=== PATIENT | male | born 1980 | race Caucasian/White ===

== ENCOUNTER 2019-01-05 17:40 | Emergency (ER) | payer OTHER, SELFPAY ==
[2019-01-05 17:45] VITALS: BP 159/91; PULSE 86; RESP 16; TEMP 36.7; O2SAT 98
--- NOTE | 2019-01-05 18:00 | DI.CT_ITS ---
SYMPTOMS/DIAGNOSIS: GASTROINTESTINAL BLEEDING CT OF THE ABDOMEN AND PELVIS: There are no prior comparison exams. The heart size is normal. The lung bases are clear. The liver, gallbladder, pancreas, kidneys and adrenals appear normal. There is borderline splenomegaly at 13.2 cm. The spleen is otherwise normal in appearance. The appendix is normal. There is no bowel dilatation or inflammatory change. There is a normal quantity of stool. The prostate, seminal vesicles and bladder are unremarkable. There is a minimal amount of fat extending into the inguinal canals. IMPRESSION: Borderline splenomegaly.
--- NOTE | 2019-01-05 18:08 | ED.GENADUL_ITS ---
Discharge Plan Disposition Patient Disposition: HOME Condition: Good Discharge Details Chief Complaint: GI Bleed Clinical Impression: Rectal bleed Primary Care Provider: Sil,Local ED Provider: Virgilio Suarez Home Meds and New Rx's Prescriptions: No Action doxycycline hyclate 100 mg Capsule 100 mg PO BID RF: 0 Discharge Instructions Instructions: Rectal Bleeding (ED) Additional Instructions: Your CT scan is negative for any significant abnormality aside for a slightly enlarged spleen which I feel is most likely an incidental finding. There is no evidence of a drop in your blood levels, low platelets, or other significant abnormality. At this time I feel your symptoms may be caused from a small internal hemorrhoid or a small mild bleed from somewhere in your lower colon. It is very important that you follow-up closely a with your primary care provider immediately for reassessment at home. If you notice any worsening of your symptoms, or any new symptoms such as vomiting, diarrhea, fever, chills, shortness of breath, chest pain, numbness, weakness, or fainting , please return immediately to the emergency department for reevaluation. Please follow up with your primary care provider as soon as possible for reassessment and reevaluation. As always, it was a pleasure participating in your medical care today. Referrals: Libertad Castro [Emergency Nurse] - Discharge Data Discharge Date/Time-TO BE ENTERED AT DEPARTURE: 01/05/19 19:16 Medical Decision Making This is a pleasant 38-year-old male who presents for evaluation of GI bleeding over the last 2 days. He noticed bright red blood on his stool yesterday x2, and then a very small episode of just blood in the toilet bowl today. He denies any abdominal pain weight loss fever or chills. He denies a history of colon cancer. Physical exam demonstrates no abdominal tenderness, no tachycardia or vital sign abnormalities. No evidence of significant hemorrhoid. Differential includes internal hemorrhoid that cannot be palpated, diverticulosis, or malignancy. Bedside Hemoccult was positive. We will get a CT scan to rule out significant diverticulosis or colonic wall thickening, will evaluate for hemoglobinopathy or platelet abnormality. 6:57 PM Laboratory work-up has returned, hemoglobin normal, platelets normal, PT PTT and INR normal, electrolytes normal, BUN/creatinine ratio normal, no clinical evidence of an upper GI bleed. With a notably normal work-up, CT scan has returned and shows no significant abnormality aside for a borderline splenomegaly. No other significant abnormalities. No evidence of colonic wall thickening per virtual radiology. Vital signs continue to remain normal. I suspect that the patient's symptoms may be secondary to very mild diverticulosis with bleeding, versus an internal hemorrhoid. 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 The patient is from out of town, I did discuss red flags which to immediately return and the importance of close follow-up and he understands. I have extensively reviewed the treatment plan and discharge instructions with the patient and their family. I have addressed all patient concerns at this time. The patient and family was made aware of what symptoms to monitor for that would warrant a return to the emergency department. Discussed the plan with the patient and family, they demonstrate verbal understanding and agreement with our assessment and plan at this time. FINDINGS: Liver: Normal. No mass. Gallbladder and bile ducts: Normal. No calcified stones. No ductal dilation. Pancreas: Normal. No ductal dilation. Spleen: Borderline splenomegaly 13.2 cm Adrenals: Normal. No mass. Kidneys and ureters: Normal. No hydronephrosis. Stomach and bowel: Normal. No obstruction. No mucosal thickening. Appendix: Normal appendix Intraperitoneal space: Normal. No free air. No significant fluid collection. Vasculature: Normal. No abdominal aortic aneurysm. Lymph nodes: Normal. No enlarged lymph nodes. Bladder: Unremarkable as visualized. Reproductive: Unremarkable as visualized. Bones/joints: No acute fracture. No dislocation. Soft tissues: Unremarkable. IMPRESSION: Borderline splenomegaly. 13.2 cm Thank you for allowing us to participate in the care of your patient. Dictated and Authenticated by: Abril Strickland MD 01/05/2019 6:36 PM Eastern Time ([place] & [place]) HPI General Date/Time Provider Initiated Documentation: 01/05/19 17:41 . HPI Narrative: This is a 38-year-old male with no significant past medical history who presents today for evaluation of blood in his stool. The patient was recently bit by a tick and on his scrotum and has been taking doxycycline for the past 4 to 5 days. He states that yesterday he had a notably painless bowel movement with notable bright red blood streaking on his stool. As a precaution he did stop taking his doxycycline. Since then he has had 2 more bowel movements with bright red blood on them, then just a few hours ago he had a bowel movement of only blood in the toilet. He denies any pain at that time. He states that he was actually just a small amount of blood in the toilet bowl, but there was no associated stool. He denies any abdominal pain nausea, vomiting, diarrhea, fever, chills, weight loss. He denies any family history of colon cancer. He denies any significant exposure to diet or toxin. He denies any dysuria or hematuria. The scrotal tick bite has resolved completely. He has no other complaints or modifying factors. Related Data Home Medications Medication Instructions Recorded Confirmed doxycycline hyclate 100 mg PO BID 01/05/19 01/05/19 General Stated Complaint: GI Bleed COMPA: 3 Review of Systems Review of Systems All systems reviewed & are unremarkable except as noted in HPI and below PFSH Social History Smoking/Tobacco Use Status: Never Alcohol Intake: never Substance use type: does not use Do you feel safe at home: Yes Do you feel safe in your relationship?: Yes Exam Narrative Exam Narrative: 1.Const: Well-nourished, Well-developed, appearing stated age 2.Eyes: PERRL, no conjunctival injection, and symmetrical lids. 3.ENT: Atraumatic external nose and ears. Moist MM. Neck: Symmetric, trachea midline, No thyromegaly. 4.CVS: +S1/S2, No murmurs or gallops. Peripheral pulses 2+ and equal in all extremities. Brisk capillary refill in all extremities. 5.RESP: Unlabored respiratory effort. Clear to auscultation bilaterally. No wheezes rales or rhonchi 6.GI: Soft, Nontender/Nondistended, No hepatosplenomegaly. No guarding or edmond ound. Rectal exam was performed with nurse at bedside. Rectal exam demonstrates no significant hemorrhoid. Internal rectal exam demonstrates no evidence of significant internal hemorrhoid. There is evidence of small amount of dried blood. Firm hard stool was noted on the inside,. No other significant abnormalities. Scrotal exam demonstrates no evidence of lesion bite or erythema or edema. 7.MSK: Normocephalic/Atraumatic, Extremities w/o deformity or ttp No cyanosis or clubbing, Normal movement of all extremities 8.Skin: Warm, Dry. No rashes or lesions. 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 Sensation grossly intact, no focal neurologic deficits. 10.Psych: (AAO) x3. Appropriate mood and affect Course Vital Signs Temperature 36.7 C 01/05/19 17:45 Pulse 86 01/05/19 17:45 Respiratory Rate 16 01/05/19 17:45 Blood Pressure 159/91 H 01/05/19 17:45 Pulse Oximetry 98 01/05/19 17:45 Temperature 36.7 C 01/05/19 17:45 Temperature Source Skin 01/05/19 17:45 Pulse 86 01/05/19 17:45 Respiratory Rate 16 01/05/19 17:45 Respiratory Effort 01/05/19 17:48 Blood Pressure 159/91 H 01/05/19 17:45 Blood Pressure Position Sitting 01/05/19 17:45 Pulse Oximetry 98 01/05/19 17:45 Oxygen Delivery Method Room Air 01/05/19 17:45 Oxygen Flow Rate 0 01/05/19 17:45 Comment 01/05/19 17:45
[2019-01-05 18:17] LABS: Abs Immature Grans 0.01 k/cumm (0.0-0.09); Absolute Basophil Count 0.04 k/cumm (0.0-0.2); Absolute Lymphocyte Count 1.34 k/cumm (1.2-3.4); Absolute Monocyte Count 0.73 k/cumm (0.11-0.7); Absolute Neutrophil Count 3.97 k/cumm (1.2-6.7); Basophils % 0.6; Eosinophils % 1.6; HCT 42.7 % (40.0-50.0); HGB 14.3 g/dL (13.5-17.5); Immature Grans % 0.2; Lymphocytes % 21.6; Mean Corp. HGB Concentration 33.5 g/dL (32.0-36.0); Mean Corpuscular Hemoglobin 29.3 pg (27.0-33.0); Mean Corpuscular Volume 87.5 fL (80-95); Mean Platelet Volume 9.9 fL (8.0-11.0); Monocytes % 11.8; Neutrophils % 64.2; Platelet Count 250 x1000/uL (130-400); RBC 4.88 m/cumm (4.50-6.00); RBC Distribution Width 13.1 % (11.8-14.1); White Blood Cell Count 6.19 k/cumm (4.4-10.8)
[2019-01-05 18:29] LABS: ALT 33 U/L (12-78); AST 25 U/L (15-37); Albumin 4.1 g/dL (3.4-5.0); Alkaline Phosphatase 85 U/L (46-116); Anion Gap 9.1 mmol/L (3-11); BUN 11 mg/dL (7-18); Bilirubin, Total 0.9 mg/dL (0.2-1.0); CO2 30.9 mmol/L (21.0-32.0); CREATININE 0.99 mg/dL (0.70-1.30); Calcium 9.3 mg/dL (8.5-10.1); Chloride 103 mmol/L (98-107); Glucose 111 mg/dL (70-100); PTT Activated 23.2 sec (21.0-31.4); Potassium 3.5 mmol/L (3.5-5.1); Prothrombin Time 9.5 sec (9.3-11.0); Sodium 143 mmol/L (136-145); Total Protein 7.5 g/dL (6.4-8.2)
--- NOTE | 2019-01-05 18:36 | DI.VRAD_ITS ---
EXAM: CT Abdomen and Pelvis With Contrast EXAM DATE/TIME: 01/05/2019 6:01 PM CLINICAL HISTORY: 38 years old, male; Condition or disease; Other: Suspected gi bleed TECHNIQUE: Imaging protocol: Axial computed tomography images of the abdomen and pelvis with intravenous contrast. Coronal and sagittal reformatted images were created and reviewed. COMPARISON: No relevant prior studies available. FINDINGS: Liver: Normal. No mass. Gallbladder and bile ducts: Normal. No calcified stones. No ductal dilation. Pancreas: Normal. No ductal dilation. Spleen: Borderline splenomegaly 13.2 cm Adrenals: Normal. No mass. Kidneys and ureters: Normal. No hydronephrosis. Stomach and bowel: Normal. No obstruction. No mucosal thickening. Appendix: Normal appendix Intraperitoneal space: Normal. No free air. No significant fluid collection. Vasculature: Normal. No abdominal aortic aneurysm. Lymph nodes: Normal. No enlarged lymph nodes. Bladder: Unremarkable as visualized. Reproductive: Unremarkable as visualized. Bones/joints: No acute fracture. No dislocation. Soft tissues: Unremarkable. IMPRESSION: Borderline splenomegaly. 13.2 cm Dictated and Authenticated by: Abril Strickland MD. Ordering:BRITTANY Poole MD
[2019-01-05 19:10] VITALS: BP 125/76; PULSE 72; RESP 14; TEMP 37.3; O2SAT 98
== END 2019-01-05 19:16 | disposition home or self-care (01) ==
LOC: ER 19:04
PROVIDERS: Emergency Provider Student in an Organized Health Care Education/Training Program
DX: K62.5 Hemorrhage of anus and rectum (principal); R16.1 Splenomegaly, not elsewhere classified
CPT/HCPCS: 36415; 80053; 99285; 74177; 85025; 85610; 85730; 99284